=== PATIENT | male | born 1995 | race African-American/Black ===

== ENCOUNTER 2018-01-08 07:35 | Emergency (ER) | payer OTHER ==
[2018-01-08] MEDS ORDERED: Prochlorperazine 10 MG/2 ML VIAL ONE (07:48)
[2018-01-08] MEDS ORDERED: Ketorolac Tromethamine 60 MG/2 ML VIAL ONE (07:49)
[2018-01-08] MEDS ORDERED: diphenhydrAMINE 12.5 MG/5 ML UDCUP ONE (07:50)
--- NOTE | 2018-01-08 11:59 | CT ---
PRELIMINARY REPORT/[facility]/EMERGENTY AFTER-HOURS PROCEDURE CT Head Without Intravenous Contrast CLINICAL HISTORY: The patient is a 22 years male; Pain; Headache; Migraine; Aura effect not specified; Patient HX: Pain in left frontal lobe TECHNIQUE: Axial computed tomography images of the head/brain without intravenous contrast. COMPARISON: No relevant prior studies available. FINDINGS: Brain: No intracranial hemorrhage. Normal martell-white differentiation with no evidence of edema, infar ct, abnormal mass effect or midline shift. No extra-axial fluid collection. Ventricles: Unremarkable. No ventriculomegaly. Bones/joints: Unremarkable. No acute fracture. Soft tissues: Unremarkable. Sinuses: Scattered mucosal thickening bilateral ethmoid air cells and right frontal sinus. No fluid l evels. Mastoid air cells: Unremarkable as visualized. No mastoid effusion. IMPRESSION: 1. No acute intracranial findings. 2. Paranasal sinus disease without fluid level. Correlate clinically. Thank you for allowing us to participate in the care of your patient. Dictated and Authenticated by: Corby Rapp MD 01/08/2018 8:30 AM Central Time ([place] & [place]) FINAL REPORT CT OF THE BRAIN WITHOUT CONTRAST: Date: 01/08/18 The ventricles are normal in size with no shift. No intracranial bleeding, mass, edema, or sign of st roke found. The ventricles are normal in size and show no shift. There is mucosal thickening in some of the ethmoid sinuses bilaterally, and to a lesser extent in the right frontal sinus. IMPRESSION: 1. No acute intracranial findings. 2. Ethmoid and frontal sinus disease as noted. Report in agreement with preliminary reading by [facility]. POS: HOME
== END 2018-01-08 09:02 | disposition home or self-care (01) ==
LOC: BURERS 07:35
DX: R51 Headache (principal)
CPT/HCPCS: 70450; 96372; J0780; J1885